=== PATIENT | female | born 1985 | race Caucasian/White ===

== ENCOUNTER 2018-07-07 16:15 | Emergency (ER) | payer OTHER ==
[~2018-07-07] VITALS: Ht 165.1 cm; Wt 73.0 kg
[2018-07-07] MEDS ORDERED: NEURONTIN 300300 M1 PO (16:37)
[2018-07-07] MEDS ORDERED: MEDROLDOSEPACK PO (17:28)
[2018-07-07] MEDS ORDERED: NORCO 5-325 TA1 EACH PO (17:28)
[2018-07-07 17:53] VITALS: BP 132/72
== END 2018-07-07 17:54 | disposition home or self-care (01) ==
LOC: M.ERS 16:15
DX: M54.5 Low back pain (principal); Z90.49 Acquired absence of other specified parts of digestive tract; F17.200 Nicotine dependence, unspecified, uncomplicated; Z88.6 Allergy status to analgesic agent; W00.0XXA Fall on same level due to ice and snow, initial encounter; Y93.89 Activity, other specified; Y92.89 Other specified places as the place of occurrence of the external cause; Y99.8 Other external cause status